=== PATIENT | male | born 1960 | race Caucasian/White ===

== ENCOUNTER → 2016-08-17 | Outpatient (CLI) | payer BC ==
[~2016-08-17] MED LIST: AMLO-110 PO; ASPCH81X PO; ATOR-22 PO; BUPR150T7 PO; FURO-85 PO; PRLSR20 PO; VALS320T PO
[2016-08-17 13:08] LABS: ALT/SGPT 26 U/L (12-78); AST/SGOT 11 U/L (15-37); BLOOD UREA NITROGEN 12 mg/dl (7-18); BUN/CREATININE RATIO 13.9 (10-20); CALCIUM 8.7 mg/dl (8.5-10.1); CARBON DIOXIDE 26 mmol/L (21-32); CHLORIDE 106 mmol/L (98-107); CHOLESTEROL 172 mg/dl (0-200); CREATININE 0.89 mg/dl (0.60-1.40); GLUCOSE 101 mg/dl (70-99); POTASSIUM 4.5 mmol/L (3.5-5.1); SODIUM 141 mmol/L (136-145)
[2016-08-17 13:13] LABS: ESTIMATED AVERAGE GLUCOSE 128 mg/dl; HA1C FLAG Normal (Normal); HEMATOCRIT 47.1 % (42-52); MEAN CELL VOLUME 89.9 fL (80-100); MEAN CORPUSCULAR HEMOGLOBIN 30.9 pg (25-34); MEAN CORPUSCULAR HGB CONC 34.4 g/dl (32-36); MEAN PLATELET VOLUME 13.9 fL (7.4-10.4); PLATELET COUNT 196 K/uL (130-400); RED BLOOD COUNT 5.24 M/uL (4.7-6.1); WHITE BLOOD COUNT 8.53 K/uL (4.8-10.8)
[2016-08-17 13:14] LABS: ALB/GLOB RATIO 1.1 (0.9-2); ALKALINE PHOSPHATASE 73 U/L (45-117); CHOLESTEROL/HDL RATIO 3.7; HDL CHOLESTEROL 47 mg/dl; LDL CHOLESTEROL CALCULATED 100 mg/dl; PROSTATE SPECIFIC ANTIGEN 0.674 ng/ml (0.000-4.000); TRIGLYCERIDES 126 mg/dl (0-150); VERY LOW DENSITY LIPOPROT CALC 25 mg/dl
== END | disposition home or self-care (01) ==
LOC: C.LABBFT 09:04
PROVIDERS: ATTEND Internal Medicine
DX: E78.5 Hyperlipidemia, unspecified (principal); I10 Essential (primary) hypertension; R73.09 Other abnormal glucose; Z12.5 Encounter for screening for malignant neoplasm of prostate

== ENCOUNTER → 2017-03-28 | Day surgery (SDC) | payer BC ==
[2017-03-14 11:31] VITALS: BMI 31.0
[~2017-03-28] VITALS: Ht 170.2 cm; Wt 90.9 kg
[~2017-03-28] MED LIST changes: +PROPOFOL IV EMULSION 10 MG/ML 20 ML VIAL IV ONE; +SODIUM CHLORIDE 0.9% 500ML 500 ML IV ONE
[2017-03-28 13:24] VITALS: Ht 170.2 cm; Wt 90.9 kg
--- NOTE | 2017-03-28 14:20 | Endo History and Physical ---
History & Physical Date of Service: Mar 28, 2017. Chief Complaint: HISTORY OF POLYPS Referring Physician: DR. SAMSON History of Present Illness 56 yo CM who presents for colonoscopy secondary to history of polyps. Past Medical History Reflux, Heart Disease, Hypertension Past Surgical History Hx Cardiac Surgery: No Hx Internal Defibrillator: No Hx Pacemaker: No Hx Abdominal Surgery: No Hx of Implantable Prosthesis: No Hx Post-Op Nausea and Vomiting: No Hx Cancer Surgery: No Hx Thoracic Surgery: No Hx Orthopedic: Yes (LEFT ARM SURGERY) Hx Urinary Tract Surgery: No Family History None Social History Smoking Status: Current Every Day Smoker Hx Substance Use: No Hx Alcohol Use: No Allergies Coded Allergies: No Known Allergies (Verified , 03/28/17) Current Medications Reported Home Medications Medications Dose Route/Sig Max Daily Dose Days Date Category Wellbutrin Sr (Bupropion Hcl) 150 Mg Tab 150 Mg PO QAM 03/14/17 Reported Lasix (Furosemide) 20 Mg Tab 20 Mg PO QAM 03/14/17 Reported Aspirin Chewable (Aspirin) 81 Mg Chew 81 Mg PO QAM 03/14/17 Reported Norvasc (Amlodipine Besylate) 5 Mg Tab 5 Mg PO QAM 03/14/17 Reported Diovan (Valsartan) 320 Mg Tab 320 Mg PO QAM 08/17/15 Reported Prilosec (Omeprazole) 20 Mg Capcr 20 Mg PO DAILY PRN 08/17/15 Reported Lipitor (Atorvastatin Calcium) 20 Mg Tab 20 Mg PO QAM 08/17/15 Reported Vital Signs Weight (Kilograms): 90.91 Height (Feet): 5 Height (Inches): 7 Date Time Temp Pulse Resp B/P (MAP) Pulse Ox O2 Delivery O2 Flow Rate FiO2 03/28/17 13:36 36.7 85 20 128/83 (98) 97 Room Air Physical Exam General Appearance: WD/WN, no apparent distress Respiratory/Chest: Auscultation: breath sounds normal Cardiovascular: Heart Auscultation: RRR Abdomen: Bowel Sounds: normal Inspection & Palpation: soft, non-distended, no tenderness, guarding & rebound Assessment and Plan Assessment: 56 yo CM who presents for colonoscopy secondary to history of polyps. Plan: Proceed with colonoscopy.
--- NOTE | 2017-03-28 14:54 | GI REPORT ---
Procedure Date: 03/28/2017 2:03 PM THIS REPORT HAS BEEN AMENDED Addendum Number: 1 Addendum Date: 04/02/2017 9:53:37 AM No specimens were obtained on this procedure, and therefore, no pathology is pending. Repeat colonoscopy in 5 years Procedure: Colonoscopy Indications: High risk colon cancer surveillance: Personal history of colonic polyps, Last colonoscopy: September 2015 Medicines: Monitored Anesthesia Care Complications: No immediate complications. Estimated Blood Loss: Estimated blood loss: none. Procedure: Pre-Anesthesia Assessment: - Prior to the procedure, a History and Physical was performed, and patient medications and allergies were reviewed. The patient's tolerance of previous anesthesia was also reviewed. The risks and benefits of the procedure and the sedation options and risks were discussed with the patient. All questions were answered, and informed consent was obtained. Prior Anticoagulants: The patient has taken aspirin, last dose was 1 day prior to procedure. ASA Grade Assessment: II - A patient with mild systemic disease. After reviewing the risks and benefits, the patient was deemed in satisfactory condition to undergo the procedure. After I obtained informed consent, the scope was passed under direct vision. Throughout the procedure, the patient's blood pressure, pulse, and oxygen saturations were monitored continuously. The scope was introduced through the anus and advanced to the terminal ileum. The colonoscopy was performed without difficulty. The patient tolerated the procedure well. The quality of the bowel preparation was good. The terminal ileum, ileocecal valve, appendiceal orifice, and rectum were photographed. Findings: Multiple small-mouthed diverticula were found in the sigmoid colon. Non-bleeding internal hemorrhoids were found during retroflexion. The hemorrhoids were small. Impression: - Diverticulosis in the sigmoid colon. - Non-bleeding internal hemorrhoids. - No specimens collected. Recommendation: - Resume previous diet. - Continue present medications. - Repeat colonoscopy for surveillance based on pathology results. - Return to primary care physician as previously scheduled. Romain Alva Lacey, 03/28/2017 2:54:10 PM This report has been signed electronically. Note Initiated On: 03/28/2017 2:03 PM I attest to the content of the Intraoperative Record and orders documented therein, exceptions below Romain aClle Abhijit, DO 04/02/2017 9:54:06 AM This report has been signed electronically.
--- NOTE | 2017-03-28 14:56 | Discharge Instructions ---
Endoscopy Patient Instructions Date / Procedure(s) Performed Mar 28, 2017. Colonoscopy Allergy Information Coded Allergies: No Known Allergies (Verified , 03/28/17) Discharge Date / Findings Mar 28, 2017. Diverticulosis Internal hemorrhoids Medication Instructions Stopped Medication(s): STOP ASA OK to resume all medications today as prescribed Reported Home Medications Medications Dose Route/Sig Max Daily Dose Days Date Category Wellbutrin Sr (Bupropion Hcl) 150 Mg Tab 150 Mg PO QAM 03/14/17 Reported Lasix (Furosemide) 20 Mg Tab 20 Mg PO QAM 03/14/17 Reported Aspirin Chewable (Aspirin) 81 Mg Chew 81 Mg PO QAM 03/14/17 Reported Norvasc (Amlodipine Besylate) 5 Mg Tab 5 Mg PO QAM 03/14/17 Reported Diovan (Valsartan) 320 Mg Tab 320 Mg PO QAM 08/17/15 Reported Prilosec (Omeprazole) 20 Mg Capcr 20 Mg PO DAILY PRN 08/17/15 Reported Lipitor (Atorvastatin Calcium) 20 Mg Tab 20 Mg PO QAM 08/17/15 Reported Provider Instructions Activity Restrictions - No exercising or heavy lifting for 24 hours. - Do not drink alcohol the day of the procedure. - Do not drive a car or operate machinery until the day after the procedure. - Do not make any important decisions or sign important papers in 24 hours after the procedure. Following Day: - Return to full activity which may include returning to work/school. Diet Start your diet with liquids and light foods (jello, soup, juice, toast). Then eat your usual diet if not nauseated. Treatment For Common After Affects For mild abdominal pain, bloating, or excessive gas: - Rest - Eat lightly - Lie on right side Follow-Up Information Follow-up with DR. SAMSON as scheduled Anesthesia Information What You Should Know You have had a procedure that required some medicine to reduce anxiety and discomfort. This treatment is called moderate sedation. After receiving the treatment, you may be sleepy, but you will be able to breathe on your own. The effects of the treatment may last for several hours. Follow these instructions along with Activity/Diet recommendations noted above: * Do NOT do anything where dizziness or clumsiness would be dangerous. * Rest quietly at home today, then you can be up and about tomorrow. * Have a responsible person stay with you the rest of today. * You may have had an I.V. today. If so, you may take the dressing off later today. Recommendations Call your doctor if: * Trouble breathing * Continuous vomiting for more than 24 hours * Temperature above 101 degrees * Severe abdominal pain or bloating * Pain not relieved by pain medicine ordered * There is increased drainage or redness from any incision * A large amount of rectal bleeding greater than 2-3 tablespoons. (If you had a polyp/s removed or have hemorrhoids, a small amount of blood - from the rectum is to be expected.) * You have any unanswered questions or concerns. IN THE EVENT OF A SERIOUS EMERGENCY, GO TO THE NEAREST EMERGENCY ROOM Your discharge instructions were prepared by provider Romain Lacey. Patient Instructions Signature Page Jon Winston Patient (or Guardian) Signature/Date: I have read and understand the instructions given to me by my caregivers. Caregiver/RN/Doctor Signature/Date: The above-named patient and/or guardian has received patient instructions on this date. + Original Patient Signature Page (only) stays with chart. Please make copy for patient.
--- NOTE | 2017-03-28 15:11 | Anesthesiology Progress Note ---
Anesthesia Post Op Note Date & Time Mar 28, 2017 at 15:10 Vital Signs Pain Intensity: 0 Vital Signs Past 12 Hours Date Time Temp Pulse Resp B/P (MAP) Pulse Ox O2 Delivery O2 Flow Rate FiO2 03/28/17 14:52 83 16 113/73 (86) 95 Room Air 03/28/17 13:36 36.7 85 20 128/83 (98) 97 Room Air Notes Mental Status: alert / awake / arousable, participated in evaluation Pt Amnestic to Procedure: Yes Nausea / Vomiting: adequately controlled Pain: adequately controlled Airway Patency, RR, SpO2: stable & adequate BP & HR: stable & adequate Hydration State: stable & adequate Anesthetic Complications: no major complications apparent
[2017-03-28 15:24] VITALS: BP 125/71; PULSE 78; O2SAT 98
== END | disposition home or self-care (01) ==
LOC: C.GI 12:59
PROVIDERS: ATTEND Internal Medicine
DX: Z12.11 Encounter for screening for malignant neoplasm of colon (principal); Z86.010 Personal history of colon polyps; K57.30 Diverticulosis of large intestine without perforation or abscess without bleeding; K64.8 Other hemorrhoids; I10 Essential (primary) hypertension; K21.9 Gastro-esophageal reflux disease without esophagitis; F17.200 Nicotine dependence, unspecified, uncomplicated; Z79.82 Long term (current) use of aspirin; Z79.899 Other long term (current) drug therapy

== ENCOUNTER → 2017-05-19 | Outpatient (CLI) | payer BC ==
[~2017-05-19] MED LIST changes: -PROPOFOL IV EMULSION 10 MG/ML 20 ML VIAL IV ONE; -SODIUM CHLORIDE 0.9% 500ML 500 ML IV ONE
[2017-05-19 12:51] LABS: ESTIMATED AVERAGE GLUCOSE 140 mg/dl; HA1C FLAG Normal (Normal)
[2017-05-19 12:53] LABS: BLOOD UREA NITROGEN 15 mg/dl (7-18); BUN/CREATININE RATIO 16.4 (10-20); CALCIUM 8.8 mg/dl (8.5-10.1); CARBON DIOXIDE 27 mmol/L (21-32); CHLORIDE 106 mmol/L (98-107); CREATININE 0.91 mg/dl (0.60-1.40); GLUCOSE 132 mg/dl (70-99); SODIUM 140 mmol/L (136-145)
== END | disposition home or self-care (01) ==
LOC: C.LABBFT 08:51
PROVIDERS: ATTEND Internal Medicine
DX: Z00.00 Encounter for general adult medical examination without abnormal findings (principal); I10 Essential (primary) hypertension; R73.09 Other abnormal glucose; E78.5 Hyperlipidemia, unspecified; R60.9 Edema, unspecified

== ENCOUNTER → 2017-10-12 | Outpatient (CLI) | payer BC ==
--- NOTE | 2017-10-12 12:13 | DIAGNOSTIC IMAGING REPORT ---
CT LUNG SCREENING, LOW DOSE WITH COMPUTER-AIDED DETECTION (CAD) CLINICAL HISTORY: 57 years-old Male with presents for a screening study with history of tobacco abuse. Emphysema. COMPARISON STUDY: Chest CT 03/10/2016 and 06/02/2015 CT DOSE: 88.63 mGy.cm TECHNIQUE: Low-dose helical CT was acquired without intravenous contrast from lung apices to bases and reconstructed at 2.5 mm every 2 mm. CAD was utilized for this study. A dose lowering technique was utilized adhering to the principles of ALARA. FINDINGS: thyroid is mildly heterogeneous without dominant nodule identified. Mildly enlarged right peritracheal lymph node measures 1.4 x 1.1 cm on image 117 of series 4 which is nonspecific with 1.2 cm right hilar lymph node also present. These lymph nodes appear unchanged from comparison. Additionally, there are a few calcified bilateral hilar lymph nodes compatible with prior velásquez limit disease. There is mild multichamber cardiac enlargement with coronary arterial disease. Mild atherosclerosis of the aorta without aneurysm. The unopacified pulmonary artery is within normal limits. There is no pneumothorax or pleural effusion. Mild emphysema. 4 x 4 mm solid nodule of the right upper lobe anterior segment, image 57 of series 5 is unchanged dating back to at least 06/02/2015 suggesting benign etiology. There are no new or enlarging pulmonary nodules identified. There is mild bilateral bronchial wall thickening suggesting bronchitis with associated mild mucosal secretions within the tracheal bronchial tree. There is minimal subsegmental bibasilar atelectasis. 2 mm nodule of the right lower lobe seen within a subpleural location, image 97 of series 156 which is also unchanged suggesting benign etiology. 2 mm lesion of the right lung apex, image 30 of series 5 is also unchanged. The imaged upper abdominal structures demonstrate no acute abnormality. Low attenuating lesions of the bilateral adrenal glands measuring up to 2.0 cm on the right and 1.5 cm are unchanged and indeterminate however based on stability would favor benign etiology such as lipid poor adrenal adenomas. Bilateral gynecomastia. Soft tissues and bony structures appear to be within normal limits. Multilevel endplate spurring about the spine. IMPRESSION: 1. 4 mm solid nodule of the anterior segment right upper lobe appears unchanged in size and appearance dating back to at least 06/02/2015 compatible with benign etiology. There are a few additional solid nodules in the right lung again noted measuring up to 2 mm which are also unchanged compatible with benign etiology. No suspicious pulmonary nodules identified. 2. Emphysema with mild bronchitis. 3. No lobar airspace consolidation. CAD FINDINGS: Overall Lung RADS Category: 2 Lung RADS Management Recommendation: Continue annual lung cancer screening. Lung RADS Follow Up Date: 2018-10-12 Lung RADS Nodule ID: [id number] The above report was generated using voice recognition software. It may contain grammatical, syntax or spelling errors. Electronically signed by: Ghassan Centeno M.D. 10/12/2017 12:11 PM Dictated Date/Time: 10/12/2017 11:52 AM
== END | disposition home or self-care (01) ==
LOC: C.CTS 10:59
PROVIDERS: ATTEND Internal Medicine Pulmonary Disease
DX: Z87.891 Personal history of nicotine dependence (principal); R91.8 Other nonspecific abnormal finding of lung field; J43.9 Emphysema, unspecified

== ENCOUNTER → 2017-10-17 | Outpatient (CLI) | payer BC ==
[2017-10-17 12:40] LABS: BASO % 0.7 %; BASO ABS # 0.07 K/uL (0-0.2); EOS % 4.1 %; EOS ABS # 0.42 K/uL (0-0.5); HEMATOCRIT 47.1 % (42-52); HEMOGLOBIN 15.7 g/dL (14.0-18.0); IG# 0.01 K/uL (0.00-0.02); LYMPH % 23.3 %; LYMPH ABS # 2.41 K/uL (1.2-3.4); MEAN CELL VOLUME 89.9 fL (80-100); MEAN CORPUSCULAR HGB CONC 33.3 g/dl (32-36); MEAN PLATELET VOLUME 13.4 fL (7.4-10.4); MONO % 7.4 %; MONO ABS # 0.76 K/uL (0.11-0.59); NEUT % 64.4 %; NEUT ABS # 6.66 K/uL (1.4-6.5); PLATELET COUNT 199 K/uL (130-400); RED CELL DISTRIBUTION WIDTH CV 14.2 % (11.5-14.5); RED CELL DISTRIBUTION WIDTH SD 46.6 fL (36.4-46.3); WHITE BLOOD COUNT 10.33 K/uL (4.8-10.8)
[2017-10-17 13:16] LABS: HEMOGLOBIN A1C 6.2 % (4.5-5.6)
[2017-10-17 13:37] LABS: ALBUMIN 3.3 gm/dl (3.4-5.0); ALT/SGPT 23 U/L (12-78); AST/SGOT 9 U/L (15-37); BLOOD UREA NITROGEN 14 mg/dl (7-18); CALCIUM 8.8 mg/dl (8.5-10.1); CARBON DIOXIDE 27 mmol/L (21-32); CHOLESTEROL 149 mg/dl (0-200); CREATININE 0.88 mg/dl (0.60-1.40); GLUCOSE 126 mg/dl (70-99); POTASSIUM 4.1 mmol/L (3.5-5.1); SODIUM 139 mmol/L (136-145)
[2017-10-17 13:47] LABS: ALKALINE PHOSPHATASE 70 U/L (45-117); LDL CHOLESTEROL CALCULATED 90 mg/dl; TOTAL PROTEIN 6.5 gm/dl (6.4-8.2)
[2017-10-17 15:16] LABS: CREATININE RANDOM URINE 43.1 mg/dl
== END | disposition home or self-care (01) ==
LOC: C.LABBFT 07:35
PROVIDERS: ATTEND Internal Medicine
DX: E11.9 Type 2 diabetes mellitus without complications (principal); E78.5 Hyperlipidemia, unspecified; N52.9 Male erectile dysfunction, unspecified

== ENCOUNTER 2018-09-27 07:04 | Observation (INO) ==
--- NOTE | 2018-09-21 15:57 | Anesthesiology Consultation ---
Date of Service September 21, 2018 Assessment & Plan (1) Encounter for pre-operative examination: Plan: No preop labs done; will order CBC, BMP, coags for AM DOS. Chart Review Chart Review: Acceptable Risk for Surgery (PENDING PREOP LABS) and Patient NOT seen in Pre Admission Testing History Surgery Operation Date: 09/27/18 14:20 Proposed Procedures p Left Shoulder Arthroscopy with Subacromial Decompression, Open Subscapularia Repair, Open Bicep Tenodesis - Ousmane Reyes MD Height/Weight Height: 5 ft 7 in Weight: 86.183 kg Allergies Allergy/AdvReac Type Severity Reaction Status Date / Time No Known Allergies Allergy Unknown Verified 09/19/18 10:41 Medications Home Medications Medication Instructions Recorded Confirmed Last Taken amlodipine 5 mg PO QAM 09/19/18 09/19/18 Unknown aspirin [Aspirin Low Dose] 81 mg PO QAM 09/19/18 09/19/18 Unknown atorvastatin 20 mg PO QAM 09/19/18 09/19/18 Unknown bupropion HCl 150 mg PO QAM 09/19/18 09/19/18 Unknown furosemide 20 mg PO QAM 09/19/18 09/19/18 Unknown valsartan 320 mg PO QAM 09/19/18 09/19/18 Unknown Past Medical History Medical History Emphysema lung PER CXR High cholesterol Hypertension Past Surgical History Surgical History History of surgery on arm LEFT Hx of hand surgery RIGHT Hx of sinus surgery POLYPECTOMY Social History Smoking Status: Former smoker tobacco type: cigarettes Do You Dip or Chew Tobacco: No Smoking End Date: 1 week ago Hx Alcohol Use: Yes Alcohol type: beer alcohol intake frequency: a few times a week Hx Substance Use: No substance use type: does not use Testing Electrocardiogram Date: 09/01/18 Findings: + NSR @ (86) Chest X-Ray Date: 09/15/18 Atherosclerotic calcification of the thoracic aorta. Emphysema and chronic interstitial thickening are similar to previous. A small metallic foreign body is noted in the anterior chest wall.
--- NOTE | 2018-09-26 16:39 | History and Physical Report ---
DATE OF ADMISSION: 09/27/2018 CHIEF COMPLAINT: Left shoulder injury. HISTORY OF PRESENT ILLNESS: This is a 58-year-old male patient of Dr. Choi who sustained a left shoulder injury approximately mid-August. Apparently he fell through the ice. He failed conservative treatment and an MRI confirmed a rotator cuff tear, biceps tendinopathy and impingement syndrome. The patient has elected to proceed with a left shoulder arthroscopic subacromial decompression, open subscap repair, open biceps tenodesis. PAST MEDICAL HISTORY: Hypertension, hypercholesterolemia, COPD. SOCIAL HISTORY: Nonsmoker, occasional drinker PAST SURGICAL HISTORY: Left arm surgery. REVIEW OF SYSTEMS: Chronic left shoulder pain and weakness as a result of a fall. Otherwise, denies any shortness of breath, chest pain, nausea, vomiting other joint complaints. FAMILY HISTORY: Noncontributory. MEDICATIONS: Furosemide 20 mg daily, atorvastatin 40 mg daily, bupropion 150 mg daily, amlodipine 5 mg daily, metformin 500 mg twice daily, Nicoderm patch step 2 14 mg, irbesartan 300 mg daily. ALLERGIES: No known drug allergies. PHYSICAL EXAMINATION: GENERAL: Well-developed, well-nourished 58-year-old male in no acute distress. He is alert and oriented x3 and pleasant. HEENT: Normocephalic, atraumatic. Extraocular motions are intact. Pupils are equal, reactive to light. HEART: Regular rate and rhythm. No murmurs appreciated. LUNGS: Clear. ABDOMEN: Soft and nontender. Bowel sounds are present. EXTREMITIES: Left shoulder reveals full range of motion with pain. He has positive impingement maneuvering. He has 3+ to 4/5 strength globally. He has a positive belly press test, positive empty can maneuvering. Neurologically and neurovascularly he is intact in his left upper extremity. DIAGNOSES: Left shoulder rotator cuff tear, biceps tendinopathy and impingement. He has a history of hypertension, hypercholesterolemia, chronic obstructive pulmonary disease. PLAN: The patient was advised of his diagnosis. Indications, risks, benefits, postop course have all been reviewed. The patient wished to proceed with a left shoulder arthroscopic subacromial decompression, open subscap repair and open biceps tenodesis. Necessary consent forms, preoperative testing and clearances will be obtained.
[~2018-09-27 07:04] MED LIST changes: -AMLO-110 PO; -ASPCH81X PO; -ATOR-22 PO; -BUPR150T7 PO; +CEFAZOLIN 2000MG 2,000 MG/15 ML SYR IV SCH; -FURO-85 PO; -PRLSR20 PO; +ROPIVACAINE 0.5% 5 MG/ML 30 ML VIAL ONE; -VALS320T PO
[2018-09-27] MEDS ORDERED: PROPOFOL IV EMULSION 10 MG/ML 20 ML VIAL IV ONE (07:26)
[2018-09-27] MEDS ORDERED: MIDAZOLAM HCL 1 MG/ML 2ML VIAL ONE (07:26)
[2018-09-27] MEDS ORDERED: DEXAMETHASONE SOD INJ 4 MG/ML VIAL ONE (07:26)
[2018-09-27] MEDS ORDERED: ONDANSETRON INJ 2 MG/ML 2 ML VIAL ONE (07:26)
[2018-09-27] MEDS ORDERED: fentaNYL citrate 100 MCG/2 ML VIAL ONE ×2 (07:26→11:38)
[2018-09-27 08:07] LABS: Partial Thromboplastin Ratio 0.9; Partial Thromboplastin Time 24.2 Seconds (21.0-31.0); Prothrombin Time 9.8 Seconds (9.0-12.0)
[2018-09-27] MEDS ORDERED: LACTATED RINGER'S 1,000 ML IV SCH (08:24)
[2018-09-27 08:28] LABS: BUN Creatinine Ratio 17.4 (10-20); Calcium 8.4 mg/dl (8.5-10.1); Est GFR (African American) 76.6; Est GFR (Non-African American) 66.1; Potassium 4.4 mmol/L (3.5-5.1)
[2018-09-27] MEDS ORDERED: EpINEphrine HCL INJ 1 MG/ML 1ML SYRINGE ONE (09:35)
--- NOTE | 2018-09-27 10:42 | History & Physical Bridge Note ---
Date of Service September 27, 2018 History & Physical Bridge Note I have examined the patient, reviewed the History & Physical and in the interval since the performance of the History & Physical I have noted the following changes of clinical significance: no changes noted
[2018-09-27] MEDS ORDERED: FLUMAZENIL 0.1 MG/1 ML 10 ML VIAL IV PRN (10:45)
[2018-09-27] MEDS ORDERED: ePHEDrine sulfate 50 MG/ML AMP IV PRN (10:45)
[2018-09-27] MEDS ORDERED: PROMETHAZINE HCL 12.5 MG in SODIUM CHLORIDE 0.9% 50 ML IV PRN (10:45)
[2018-09-27] MEDS ORDERED: fentaNYL citrate 100 MCG/2 ML VIAL IV PRN (10:45)
[2018-09-27] MEDS ORDERED: ATROPINE SULFATE 0.1 MG/ML 10ML SYR IV PRN (10:45)
[2018-09-27] MEDS ORDERED: ONDANSETRON INJ 2 MG/ML 2 ML VIAL IV PRN ×2 (10:45→14:34)
[2018-09-27] MEDS ORDERED: LABETALOL HCL IV 5 MG/ML 20ML IV PRN (10:45)
[2018-09-27] MEDS ORDERED: NALOXONE HCL 0.4 MG/1 ML VIAL/CARP IV PRN ×2 (10:45→14:34)
[2018-09-27] MEDS ORDERED: SUCCINYLCHOLINE CHLORIDE 20 MG/ML 10 ML VIAL ONE (10:58)
[2018-09-27] MEDS ORDERED: GLYCOPYRROLATE 0.2 MG/ML VIAL ONE (10:58)
[2018-09-27] MEDS ORDERED: CISATRACURIUM BESYLATE IV SOLN 2 MG/ML 10 ML VIAL IV ONE (10:58)
[2018-09-27] MEDS ORDERED: NEOSTIGMINE METHYLSULFATE 5 MG/5 ML SYR ONE (10:58)
[2018-09-27] MEDS ORDERED: PHENYLEPHRINE HCL 10 MG/ML VIAL ONE (11:50)
--- NOTE | 2018-09-27 12:48 | Post Operative Brief Note ---
Immediate Post Op Note v1 Date of Surgery September 27, 2018 Pre & Post Diagnosis Operation Date: 09/27/18 09:40 Pre-Op Diagnosis: Left Shoulder Impingement Syndrome , subacute complete tear rotator cuff supraspinatus and subscapularis with anterior dislocation of the biceps tendon Post-Op Diagnosis: Same, DJD glenohumeral joint degenerative glenoid labral tear synovitis subacromial bursitis Procedure Operation Date: 09/27/18 09:40 Actual Procedures p Left Shoulder Arthroscopy with Subacromial Decompression, extensive debr idement including suture placement biceps tendon with tenotomy followed by open deltopectoral subscapularis and supraspinatus rotator cuff repair with biceps tenodesis- Ousmane Reyes MD Surgeon Ousmane Reyes MD Freight Con[employer] Cesar SON Estimated Blood Loss 5 Findings Consistent with Post-Op Diagnosis Specimens None Anesthesia Type General Regional Complications none Disposition Accompanied Patient To Recovery: No Disposition: Recovery Room Overlapping Procedure I was present for: the critical portions of procedure.
--- NOTE | 2018-09-27 14:18 | Anesthesiology Progress Note ---
Date of Service September 27, 2018 Anesthesia Post Procedure Vital Signs Vital Signs: Temp Pulse Pulse Resp BP Pulse Ox 09/27/18 14:00 74 16 100/59 L 98 09/27/18 13:45 36.5 C 77 20 98/71 L 96 09/27/18 13:35 86 15 97/61 L 97 09/27/18 13:25 74 14 111/73 100 09/27/18 13:15 76 13 98/76 L 100 09/27/18 13:05 36.0 C L 75 13 127/79 100 09/27/18 07:35 36.8 C 81 20 114/76 95 Pain Intensity Left Shoulder: Pain Intensity: 2 Notes Mental Status: alert / awake / arousable Patient Amnestic to Procedure: Yes Nausea / Vomiting: adequately controlled Pain: adequately controlled Airway Patency, RR, SpO2: stable & adequate BP & HR: stable & adequate Hydration State: stable & adequate Anesthetic Complications: no major complications apparent
[2018-09-27] MEDS ORDERED: TRAMADOL HCL 50 MG TABLET PO PRN (14:34)
[2018-09-27] MEDS ORDERED: HYDROmorphone INJ 0.5 MG/0.5 ML SYR IV PRN (14:34)
[2018-09-27] MEDS ORDERED: BISACODYL 10 MG SUPP PR PRN (14:34)
[2018-09-27] MEDS ORDERED: OXYCODONE HCL IR 5 MG TAB (IMMEDIATE RELEASE) PO PRN (14:34)
[2018-09-27] MEDS ORDERED: MAGNESIUM HYDROXIDE SUSP 30 ML UDC PO PRN (14:34)
[2018-09-27] MEDS ORDERED: SODIUM CHLORIDE 0.9% 1000ML 1,000 ML IV SCH (14:34)
[2018-09-27] MEDS ORDERED: ACETAMINOPHEN 500 MG TAB PO SCH (15:00)
--- NOTE | 2018-09-27 20:29 | Operative Report ---
DATE OF OPERATION: 09/27/2018 INDICATION FOR PROCEDURE: The patient is a 58-year-old male who had an injury in August, injuring his left shoulder and had pain and weakness. I was worked up by the MRI demonstrating a full thickness subscapularis tendon tear, anterior dislocation of the biceps tendon, rotator cuff tear of supraspinatus and a type 2 acromion with likely some subacromial impingement preexisting. PREOPERATIVE DIAGNOSES: Left shoulder subacute large anterior-superior rotator cuff tear; subscapularis, supraspinatus and anterior dislocation of biceps tendon and subacromial impingement. POSTOPERATIVE DIAGNOSES: Left shoulder subacute large anterior-superior rotator cuff tear; subscapularis, supraspinatus and anterior dislocation of biceps tendon and subacromial impingement with also in addition he has glenohumeral osteoarthritis and degenerative glenoid labral tearing. PROCEDURE: Left shoulder arthroscopic subacromial decompression, extensive debridement with tenotomy biceps and placement of suture material in the biceps tendon followed by open rotator cuff repair of the subscapularis and supraspinatus with an open biceps tenodesis. SURGEON: Dr. Ousmane Reyes. HR CLERK: Cesar Browne PA-C. ANESTHESIA: Regional block and general. COMPLICATIONS: None. DRAINS: None. ESTIMATED BLOOD LOSS: 5 mL. OPERATIVE PROCEDURE: The patient was taken to the operative room and anesthetized under regional block and general anesthetic. He was positioned on a [facility] shoulder table in 70 degree beachchair position. Left shoulder was sterilely prepped and draped in usual sterile fashion. Arthroscopy was started with a posterior arthroscopy portal in the soft spot, anterior portal in the subacromial space; this was in the rotator interval. We did a lateral subacromial portal as well. Intra-articular findings demonstrated that he had some areas of grade 3 wear of the glenoid, central region, some of the inferior glenoid areas. Remainder of the glenoid had a good articular surface. There was fraying of the anterior-inferior labrum with degeneration of the labrum, anterior labrum and anterior superior labrum. There was no SLAP tear, but there was dislocated biceps tendon anteriorly and an upper subscapularis tendon tear about upper 50% of the tendon. It was retracted medially. The supraspinatus was torn in the anterior aspect for about a centimeter which was torn off the bone of the greater tuberosity as well. In the subacromial space there was chronic bursitis, fraying of CA ligament, small spur in the anterior acromion, but appeared to be some impingement there. Starting in the glenohumeral joint, we had thorough debridement of all the frayed areas of grade 3 wear on the glenoid, debrided the labrum circumferentially. I debrided the undersurface of the rotator cuff and then went ahead and placed a #1 PDS suture through the biceps tendon and then did a tenotomy with the radiofrequency ablator, we then did a capsular release under this anterior superior supraspinatus and the base of the coracoid and rotator interval area, so we could mobilize the subscapularis tendon and supraspinatus tendon better. I then placed the instrumentation in the subacromial space, and had thorough subacromial bursectomy and then performed a decompression ablating the periosteum and bursa on the undersurface of the acromion releasing the CA ligament off the spur of the anterior acromion using a 5.5 bur to plane down the acromion to a type 1 flat shape. Then, the arthroscopic instrumentation was removed and we reprepped the shoulder with Betadine and then made a longitudinal incision in the deltopectoral interval. Skin was incised sharply. Subcutaneous flaps were elevated. The cephalic vein was dissected out and retracted laterally with the deltoid, pectoralis retracted medially. The conjoined tendon was identified; the thickened clavipectoral fascia was divided at the lateral margin of conjoined tendon, then the plane between the subscapularis and the conjoined tendon was developed. The lower subscapularis was still intact to its attachment to the lesser tuberosity, but the upper half was completely torn and retracted along with the anterior supraspinatus tendon tissue. I removed all the inflamed bursa tissue over the subscapularis tendon tissue, placed a #1 Vicryl suture and traction suture into the subscapularis. Mobilized the bursal surface of the subscapularis by removing any bursal adhesions and resecting the bursa there, so we could mobilize the subscapularis anatomically back to the lesser tuberosity. The lesser tuberosity and the anterior greater tuberosity were prepared with a curette and the rongeur to bleeding surface for repair. We trimmed the edge of the torn rotator cuff tear. The biceps tendon was then tenodesed in the bicipital groove. I curetted the base of the groove down to bone, put devices with appropriate tension, used a [employer] 2.8 mm cubic suture anchor placed in the mid bicipital groove area. Placed a whipstitch in a simple suture through the biceps tendon and tied these down. Left some proximal stump of the biceps tendon to repair the rotator cuff. This would augment the repair. Then rotator cuff was repaired using dual-row fixation for the subscapularis using a 5.5 mm Healicoil anchors double loaded with Ultrabraid suture medially and these were placed in horizontal mattress fashion and then superiorly I was able to close the rotator interval tissue to the posterior supraspinatus tendon tissue with 2 [id number] sutures to close that interval and then I used a 2.8 mm cubic suture anchor at the lateral footprint of the anterior supraspinatus and these sutures were passed around the [id number] sutures using them as a rip-stop technique and I placed 2 some simple sutures there and tied them down with surgeon's knot. This repaired the supraspinatus anatomically back to the greater tuberosity and that will set the tension on the subscapularis for repair. Then we tied the medial row sutures and then 4 sutures were placed into a 5.5 mm footprint laterally. I did some side to side [id number] Ultrabraid sutures #2 between the upper and lower subscap to get an anatomic repair. Then I sutured the end of the biceps tendon to the edge of the rotator cuff repair using Vicryl sutures. The repair was secured through 50 degrees of external rotation, 90 degrees abduction and forward elevation to 130 degrees without any tension on the repair. The wound was irrigated and then the deltopectoral interval was allowed to fall back together anatomically. Subcutaneous tissues were closed with interrupted 2-0 Vicryl sutures and then the skin was closed with 4-0 Monocryl sutures and Steri-Strips and the port sites were closed with nylon sutures. Sterile dressings were applied and the patient tolerated the procedure well. HUY Zarate was my events assistant, he functioned as events assistant throughout the entire procedure. He assisted in arm positioning, assisted in soft tissue retraction. He performed the final subcutaneous skin closure and will participate in the postoperative care of the patient. I attest to the content of the Intraoperative Record and any orders documented therein. Any exception s are noted below.
[2018-09-27] MEDS ORDERED: DOCUSATE SODIUM 100 MG CAP PO SCH (21:00)
[2018-09-27] MEDS ORDERED: SENNA 8.6 MG TAB PO SCH (21:00)
[2018-09-28] MEDS ORDERED: BuPROPion XL 150 MG TABCR PO SCH (09:00)
[2018-09-28] MEDS ORDERED: ASPIRIN 81 MG ECTAB PO SCH (09:00)
[2018-09-28] MEDS ORDERED: MULTIVITAMIN TAB PO SCH (09:00)
[2018-09-28] MEDS ORDERED: AMLODIPINE BESYLATE 5 MG TAB PO SCH (09:00)
[2018-09-28] MEDS ORDERED: ATORVASTATIN 20 MG TAB PO SCH (09:00)
[2018-09-28] MEDS ORDERED: FUROSEMIDE 20 MG TAB PO SCH (09:00)
[2018-09-28] MEDS ORDERED: VALSARTAN 80 MG TAB PO SCH (09:00)
--- NOTE | 2018-09-28 11:36 | Discharge Summary ---
Date of Service October 04, 2018 Discharge Data Consultations 09/27/18 14:34 Consult Case Management - Discharge Planning Routine Procedures Performed Operation Date: 09/27/18 09:40 Actual Procedures p Left Shoulder Arthroscopy with Subacromial Decompression, Open Rotator Cuff Repair, Open Bicep Tenodesis, Arthroscopic debridment(Left) - Ousmane Reyes MD
--- NOTE | 2018-10-03 13:10 | Discharge Summary ---
HISTORY OF PRESENT ILLNESS: This is a 58-year-old male patient of Dr. Choi who sustained a left shoulder injury in mid 08/2018 where he apparently fell through some ice. He failed conservative treatment and an MRI confirmed a rotator cuff tear, biceps tendinopathy and impingement syndrome. The patient elected to proceed with a left shoulder arthroscopic subacromial decompression, open rotator cuff repair and open biceps tenodesis. PAST MEDICAL HISTORY: Hypertension, hypercholesterolemia, COPD. POSTOPERATIVE COURSE: The patient underwent a left shoulder arthroscopic subacromial decompression, extensive debridement with tenotomy of the biceps and placement of suture material in the biceps tendon followed by open rotator cuff repair and open biceps tenodesis. Postoperatively, he did very well and was discharged home after observation on postoperative day #0. PHYSICAL EXAMINATION ON DISCHARGE: His left shoulder dressings were clean, dry and intact. He had good elbow motion, wrist and hand motion. Sling was intact. Neurologically and neurovascularly, he is intact in his left upper extremity. DIAGNOSES: Status post left arthroscopic subacromial decompression, biceps tenotomy, debridement and an open rotator cuff repair and open biceps tenodesis. He also has a history of hypertension, hypercholesterolemia and chronic obstructive pulmonary disease. PLAN: The patient was discharged home with home exercises only for elbow, wrist and hand. No formal physical therapy needed at this point in time. Continue his preadmission medications with the addition of pain medications. The patient will follow up as an outpatient as scheduled.
== END 2018-09-27 18:15 | disposition home or self-care (01) ==
LOC: 3E 07:04 → ASU 07:04